=== PATIENT | female | born 1945 | race Caucasian/White ===

== ENCOUNTER 2018-06-01 19:58 | Emergency (ER) | payer OTHER ==
[~2018-06-01] VITALS: Ht 154.9 cm; Wt 52.2 kg
[2018-06-01 20:14] VITALS: BP_SYST 131
[2018-06-01 23:11] VITALS: BP_SYST 135
== END 2018-06-02 00:20 | disposition left against medical advice (07) ==
LOC: SED 19:58
DX: S79.912A Unspecified injury of left hip, initial encounter (principal); M25.522 Pain in left elbow; M25.521 Pain in right elbow; W18.39XA Other fall on same level, initial encounter; I10 Essential (primary) hypertension; Y93.89 Activity, other specified; Y92.002 Bathroom of unspecified non-institutional (private) residence as the place of occurrence of the external cause; Y99.8 Other external cause status
CPT/HCPCS: 73502; 99284

== ENCOUNTER 2018-06-04 12:20 | Emergency (ER) | payer OTHER ==
[~2018-06-04] VITALS: Ht 165.1 cm; Wt 45.4 kg
[2018-06-04 12:27] VITALS: BP_SYST 139
[2018-06-04 13:55] VITALS: BP_SYST 139
== END 2018-06-04 13:55 | disposition home or self-care (01) ==
LOC: SED 12:20
DX: S70.212A Abrasion, left hip, initial encounter (principal); M25.521 Pain in right elbow; I10 Essential (primary) hypertension; G20 Parkinson's disease; Z98.890 Other specified postprocedural states; W19.XXXA Unspecified fall, initial encounter; Y93.89 Activity, other specified; Y92.89 Other specified places as the place of occurrence of the external cause; Y99.8 Other external cause status
CPT/HCPCS: 72192-TC; 99284